=== PATIENT | male | born 2000 | race American Indian/Alaskan Native ===

== ENCOUNTER 2021-08-26 21:15 | Emergency (ER) | payer SELFPAY ==
--- NOTE | 2021-08-26 21:36 | EDM.PDOC ---
ED HPI GENERAL MEDICAL PROBLEM - General Chief Complaint: Respiratory Problem Stated Complaint: ASTHMA/NEEDS INHALER REFILL Time Seen by Provider: 08/26/21 21:25 Source of Information: Reports: Patient History Limitations: Reports: No Limitations - History of Present Illness INITIAL COMMENTS - FREE TEXT/NARRATIVE: 1-year-old male presents the emergency department with request for refill on his ProAir inhaler. Patient states he recently moved to [facility] and has not establish care with a primary care provider as of yet. States he does have a history of asthma. Denies any physical complaints at this time. - Related Data Allergies Allergy/AdvReac Type Severity Reaction Status Date / Time egg Allergy Severe Anaphylactic Uncoded 08/26/21 21:32 Shock Home Meds: Home Meds Albuterol Sulfate [Proair Hfa] 8.5 gm IH Q2H PRN #1 [email or web address] 08/26/21 [Rx] Albuterol Sulfate [Proair Respiclick] 08/26/21 [History] ED ROS GENERAL - Review of Systems Review Of Systems: Comprehensive ROS is negative, except as noted in HPI. ED EXAM, GENERAL - Physical Exam Exam: See Below Exam Limited By: No Limitations General Appearance: Alert, WD/WN, No Apparent Distress Ears: Normal External Exam, Hearing Grossly Normal Nose: Normal Inspection Throat/Mouth: Normal Inspection, Normal Lips, Normal Voice, No Airway Compromise Head: Atraumatic, Normocephalic Neck: Normal Inspection, Supple Respiratory/Chest: No Respiratory Distress, No Accessory Muscle Use Cardiovascular: Normal Peripheral Pulses, Regular Rate, Rhythm GI/Abdominal: No Distention (Male) Exam: Deferred Rectal (Males) Exam: Deferred Back Exam: Normal Inspection Extremities: Normal Inspection Neurological: Alert, Oriented, Normal Cognition Psychiatric: Normal Affect, Normal Mood Skin Exam: Warm, Dry, Intact, Normal Color, No Rash Lymphatic: No Adenopathy Course - Vital Signs Text/Narrative:: Stated above, patient presents requesting refill of his ProAir inhaler as he states he sometimes needs it in the middle the night if he is short of breath. Currently does not have any complaints of shortness of breath. States he will establish care with a primary care provider as soon as he can. Prescription [place] sent [place] in [place]. Last Recorded V/S: Last Vital Signs Temp 96.2 F L 08/26/21 21:28 Pulse 79 08/26/21 21:28 Resp 16 08/26/21 21:28 BP 117/64 08/26/21 21:28 Pulse Ox 98 08/26/21 21:28 Departure - Departure Time of Disposition: 21:34 Disposition: Home, Self-Care 01 Condition: Good Clinical Impression: Encounter for medication refill - Discharge Information Prescriptions: Albuterol Sulfate [Proair Hfa] 8.5 gm IH Q2H PRN #1 [email or web address] PRN Reason: Shortness Of Breath Referrals: PCP,None [Primary Care Provider] - Forms: ED Department Discharge Additional Instructions: you were seen in the ED for a refill of your proair. Recommend that you establish care with a primary care provider as soon as possible. Sepsis Event Note (ED) - Evaluation Sepsis Screening Result: No Definite Risk - Focused Exam Vital Signs: Vital Signs Temp Pulse Resp BP Pulse Ox 08/26/21 21:28 96.2 F L 79 16 117/64 98
== END 2021-08-26 21:39 | disposition home or self-care (01) ==
LOC: JD.ED 21:15
DX: J45.909 Unspecified asthma, uncomplicated (principal); Z76.0 Encounter for issue of repeat prescription; Z91.012 Allergy to eggs
CPT/HCPCS: 99281

== ENCOUNTER 2021-09-19 11:45 | Emergency (ER) | payer SELFPAY ==
--- NOTE | 2021-09-19 12:12 | EDM.PDOC ---
ED HPI GENERAL MEDICAL PROBLEM - General Chief Complaint: General Stated Complaint: ASTHMA Time Seen by Provider: 09/19/21 12:09 Source of Information: Reports: Patient History Limitations: Reports: No Limitations - History of Present Illness INITIAL COMMENTS - FREE TEXT/NARRATIVE: 20-year-old male presents to the ED with a known history of asthma. He has ran out of his ProAir inhaler and is experiencing an exacerbation of asthma symptoms. States he is up quite a bit at night to use his inhaler over the last few days. He states he believes the cold air made his symptoms worse. He did have a recent sore throat but it went away on its own. No fever no chills denies any productive cough. He has recently relocated to the [place] area and does not have a primary care provider. Onset: Gradual Onset Date: 09/16/21 (Has been having increased asthma symptoms for the last 4 to 5 days) Duration: Day(s):, Getting Worse Location: Reports: Other (Redness of breath and wheezing worse at bedtime) Quality: Reports: Other Severity: Moderate (Asthma symptoms wheezing and shortness of breath) Improves with: Reports: Rest Worsens with: Reports: Other (Worse with activity and working outside) Context: Reports: Other (Chronic asthma ran out of his inhaler). Denies: Activity (Nonproductive), Exercise, Lifting, Sick Contact, Trauma Associated Symptoms: Reports: Cough, Shortness of Breath, Other. Denies: Confusion, Chest Pain (Intermittent wheezing), cough w sputum, Diaphoresis, Fever/Chills, Headaches, Loss of Appetite, Malaise, Nausea/Vomiting, Rash, Seizure Treatments DISTANCE LEARNING PROGRAM COORDINATOR: Reports: Other (see below) (Ran out of his ProAir inhaler) - Related Data Allergies Allergy/AdvReac Type Severity Reaction Status Date / Time egg Allergy Severe Anaphylactic Uncoded 09/19/21 12:02 Shock Home Meds: Home Meds Albuterol Sulfate [Proair Hfa] 8.5 gm IH Q2H PRN #1 [email or web address] 08/26/21 [Rx] Albuterol Sulfate [Proair Hfa] 8.5 gm IH Q3HR PRN #1 [email or web address] 09/19/21 [Rx] Montelukast [Singulair] 10 mg PO DAILY 09/19/21 [History] Past Medical History HEENT History: Reports: Other (See Below) Other HEENT History: Seasonal Allergies Respiratory History: Reports: Asthma Social & Family History - Tobacco Use Tobacco Use Status *Q: Never Tobacco User - Caffeine Use Caffeine Use: Reports: Coffee - Recreational Drug Use Recreational Drug Use: No - Living Situation & Occupation Living situation: Reports: Single Occupation: Unemployed ED ROS GENERAL - Review of Systems Review Of Systems: See Below Constitutional: Denies: Fever, Chills, Malaise, Weakness, Fatigue, Night Sweats, Decreased Appetite HEENT: Reports: No Symptoms Respiratory: Reports: Shortness of Breath, Wheezing (Chronic asthma symptoms) Cardiovascular: Reports: No Symptoms Endocrine: Reports: No Symptoms GI/Abdominal: Reports: No Symptoms : Reports: No Symptoms Musculoskeletal: Reports: No Symptoms Skin: Reports: No Symptoms Neurological: Reports: No Symptoms Psychiatric: Reports: No Symptoms Hematologic/Lymphatic: Reports: No Symptoms Immunologic: Reports: No Symptoms ED EXAM, GENERAL - Physical Exam Exam: See Below Exam Limited By: No Limitations General Appearance: Alert, WD/WN, No Apparent Distress, Other (Temperature is 36.6 degrees. Heart rate is 67 and sinus respiratory 16 with O2 sats of 94% room air. Of note his hands are cold and therefore pulse oximetry is not accurate. BP is 126/80) Eye Exam: Bilateral Eye: Normal Inspection (No blepharal pallor or scleral icterus.) Ears: Normal TMs Throat/Mouth: Normal Inspection, Normal Lips, Normal Teeth, Normal Gums, Normal Oropharynx Head: Atraumatic, Normocephalic Neck: Normal Inspection, Supple, Non-Tender, Full Range of Motion. No: Lymphadenopathy (L), Lymphadenopathy (R) Respiratory/Chest: No Respiratory Distress, Normal Breath Sounds, No Accessory Muscle Use, Wheezing (Very occasional wheezing on forced expiration) Cardiovascular: Normal Peripheral Pulses, Regular Rate, Rhythm, No Edema, No Gallop, No JVD, No Murmur Peripheral Pulses: 3+: Carotid (L), Carotid (R), Posterior Tibial (L), Posterior Tibial (R), Dorsalis Pedis (L), Dorsalis Pedis (R) Course - Vital Signs Last Recorded V/S: Last Vital Signs Temp 36.6 C 09/19/21 12:00 Pulse 67 09/19/21 12:00 Resp 16 09/19/21 12:00 BP 126/80 09/19/21 12:00 Pulse Ox 94 L 09/19/21 12:00 - Radiology Interpretation Free Text/Narrative:: 20-year-old male presents to the ED with worsening asthma symptoms over the last 4 to 5 days. Believes it was set off by colder air environment. He recently relocated to the [facility]. Uses a proair inhaler but ran out of his inhaler and has yet to look up a primary care provider. He states symptoms are worse at bedtime. He did have a recent upper respiratory tract infection which appears to been viral with a sore throat that went away after 3 days. Examination reveals occasional expiratory wheeze from lung bases but otherwise clear. He is afebrile. Plan refill proair inhaler 8.5 g 2 puffs every 3 hours as needed for relief of cough. Departure - Departure Time of Disposition: 12:09 Disposition: Home, Self-Care 01 Condition: Fair Clinical Impression: Asthma exacerbation Qualifiers: Asthma severity: moderate Asthma persistence: unspecified Qualified Code(s): J45.901 - Unspecified asthma with (acute) exacerbation - Discharge Information *PRESCRIPTION DRUG MONITORING PROGRAM REVIEWED*: Not Applicable *COPY OF PRESCRIPTION DRUG MONITORING REPORT IN PATIENT MIKE: Not Applicable Prescriptions: Albuterol Sulfate [Proair Hfa] 8.5 gm IH Q3HR PRN #1 [email or web address] PRN Reason: Asthma symptoms Instructions: Asthma, Adult, [id number], Asthma Attack Referrals: PCP,None [Primary Care Provider] - Forms: ED Department Discharge Additional Instructions: Evaluation the emergency room today in regards to increased wheezing and shortness of breath due to exacerbation of asthma likely precipitated by cold air. Recent sore throat which appears to be been viral as it is now improved. Refill prescription for proair inhaler 2 puffs every 3-4 hours as needed for relief of shortness of breath and/or wheezing. If you are waking up at night to use your inhaler more than once your asthma is in poor control and you should be followed up in clinic for possible steroid inhaler to bring asthma under good control. Sepsis Event Note (ED) - Evaluation Sepsis Screening Result: No Definite Risk - Focused Exam Vital Signs: Vital Signs Temp Pulse Resp BP Pulse Ox 09/19/21 12:00 36.6 C 67 16 126/80 94 L
== END 2021-09-19 12:20 | disposition home or self-care (01) ==
LOC: JD.ED 11:45
DX: J45.901 Unspecified asthma with (acute) exacerbation (principal); Z91.012 Allergy to eggs; Z79.899 Other long term (current) drug therapy
CPT/HCPCS: 99283; 99284

== ENCOUNTER 2021-09-29 13:48 | Emergency (ER) | payer SELFPAY ==
[2021-09-29] MEDS ORDERED: Sodium Chloride 0.9% 10 ML Syringe FLUSH PRN (14:23)
[2021-09-29] MEDS ORDERED: Sodium Chloride 0.9% 1,000 ML IV ONE (14:23)
[2021-09-29] MEDS ORDERED: Ondansetron 4 MG/2 ML SDV IVPUSH ONE (14:23)
--- NOTE | 2021-09-29 14:53 | EDM.PDOC ---
ED HPI GENERAL MEDICAL PROBLEM - General Chief Complaint: General Stated Complaint: NAUSEA COUGH HEADACHE Time Seen by Provider: 09/29/21 14:18 Source of Information: Reports: Patient History Limitations: Reports: No Limitations - History of Present Illness INITIAL COMMENTS - FREE TEXT/NARRATIVE: 20-year-old male presents the emergency department today with complaints of nausea, vomiting, sore throat, cough, fever, weakness and generalized body aches that started this morning when he woke. States he does have a history of asthma. He is not a smoker. He states he cannot receive the influenza vaccine and has not received his Covid vaccine. States he has vomited so much he has been able to keep any food or fluids down. Headache Pain Score (Numeric/FACES): 8 - Related Data Allergies Allergy/AdvReac Type Severity Reaction Status Date / Time egg Allergy Severe Anaphylactic Verified 09/29/21 14:18 Shock Home Meds: Home Meds Albuterol Sulfate [Proair Hfa] 8.5 gm IH Q2H PRN #1 [email or web address] 08/26/21 [Rx] Past Medical History HEENT History: Reports: Other (See Below) Other HEENT History: Seasonal Allergies Respiratory History: Reports: Asthma Social & Family History - Caffeine Use Caffeine Use: Reports: Coffee - Living Situation & Occupation Living situation: Reports: Single Occupation: Unemployed ED ROS GENERAL - Review of Systems Review Of Systems: Comprehensive ROS is negative, except as noted in HPI. ED EXAM, GENERAL - Physical Exam Exam: See Below Exam Limited By: No Limitations General Appearance: Alert, WD/WN, Mild Distress Ears: Normal External Exam, Hearing Grossly Normal Nose: Normal Inspection Throat/Mouth: Normal Inspection, Normal Lips, Normal Voice, No Airway Compromise Head: Atraumatic, Normocephalic Neck: Normal Inspection, Supple Respiratory/Chest: No Respiratory Distress, Lungs Clear, Normal Breath Sounds, No Accessory Muscle Use, Chest Non-Tender Cardiovascular: Normal Peripheral Pulses, Regular Rate, Rhythm, No Edema, No Murmur Peripheral Pulses: 2+: Radial (L), Radial (R) GI/Abdominal: Normal Bowel Sounds, Soft, Non-Tender, No Distention (Male) Exam: Deferred Rectal (Males) Exam: Deferred Back Exam: Normal Inspection, Full Range of Motion Extremities: Normal Inspection, Normal Capillary Refill Neurological: Alert, Oriented, Normal Cognition Psychiatric: Normal Affect, Normal Mood Skin Exam: Warm, Dry, Intact, Normal Color, No Rash Lymphatic: No Adenopathy Course - Vital Signs Text/Narrative:: As stated above, patient presents with flulike symptoms that started this morning upon waking. He has been able unable to keep food or fluid down. Physical exam is essentially unremarkable, lungs are clear and heart rate is regular without murmur. Patient is sitting at the side of the bed holding an emesis bag at the time of my exam. Patient is hemodynamically stable at this time. Will obtain Covid and influenza swabs. Patient will also be given a liter of normal saline IV as he is likely dehydrated as well as Zofran 4 mg IV. Will medicate the patient with Tessalon Perles once his vomiting is under control. Last Recorded V/S: Last Vital Signs Temp 98.6 F 09/29/21 14:13 Pulse 96 09/29/21 14:13 Resp 20 09/29/21 14:13 BP 132/74 09/29/21 14:13 Pulse Ox 99 09/29/21 14:13 - Orders/Labs/Meds Orders: Active Orders 24 hr Category Date Time Status Vital Signs [RC] Q15M Care 09/29/21 15:43 Active EPINEPHrine [Adrenalin] Med 09/29/21 15:42 Active 0.3 mg IM ASDIRECTED PRN Famotidine [Pepcid] Med 09/29/21 15:42 Active 20 mg IVPUSH ASDIRECTED PRN Sodium Chloride 0.9% [Saline Flush] Med 09/29/21 14:23 Active 10 ml FLUSH ASDIRECTED PRN Sodium Chloride 0.9% [Saline Flush] Med 09/29/21 15:45 Active 30 ml FLUSH ASDIRECTED diphenhydrAMINE [Benadryl] Med 09/29/21 15:42 Active 50 mg IVPUSH ASDIRECTED PRN methylPREDNISolone Sod Succ [Solu-MEDROL] Med 09/29/21 15:42 Active 125 mg IVPUSH ASDIRECTED PRN Saline Lock Insert [OM.PC] Stat Oth 09/29/21 14:23 Ordered Medication Orders Diphenhydramine HCl (Diphenhydramine 50 Mg/Ml Sdv) 50 mg IVPUSH ASDIRECTED PRN PRN Reason: hypersensitivity reaction Epinephrine HCl (Epinephrine 1 Mg/Ml Sdv) 0.3 mg IM ASDIRECTED PRN PRN Reason: hypersensitivity reaction Famotidine (Famotidine 20 Mg/2 Ml Sdv) 20 mg IVPUSH ASDIRECTED PRN PRN Reason: hypersensitivity reaction Methylprednisolone Sodium Succinate (Methylprednisolone Sodium Succinate 125 Mg/2 Ml Sdv) 125 mg IVPUSH ASDIRECTED PRN PRN Reason: hypersensitivity reaction Sodium Chloride (Sodium Chloride 0.9% 10 Ml Syringe) 10 ml FLUSH ASDIRECTED PRN PRN Reason: Keep Vein Open Last Admin: 09/29/21 14:46 Dose: 10 ml Documented by: [email or web address] Sodium Chloride (Sodium Chloride 0.9% 10 Ml Syringe) 30 ml FLUSH ASDIRECTED BRIAN Labs: Laboratory Tests 09/29/21 09/29/21 09/29/21 Range/Units 14:31 14:31 14:31 WBC 9.98 H (4.23-9.07) K/mm3 RBC 5.44 (4.63-6.08) M/mm3 Hgb 15.9 (13.7-17.5) gm/dl Hct 46.6 (40.1-51.0) % MCV 85.7 (79.0-92.2) fl MCH 29.2 (25.7-32.2) pg MCHC 34.1 (32.2-35.5) g/dl RDW Std Deviation 41.7 (35.1-43.9) fL Plt Count 229 (163-337) K/mm3 MPV 10.3 (9.4-12.3) fl Neut % (Auto) 82.6 H (34.0-67.9) % Lymph % (Auto) 5.1 L (21.8-53.1) % [place] % (Auto) 5.0 L (5.3-12.2) % Eos % (Auto) 6.9 (0.8-7.0) Baso % (Auto) 0.2 (0.1-1.2) % Neut # (Auto) 8.24 H (1.78-5.38) K/mm3 Lymph # (Auto) 0.51 L (1.32-3.57) K/mm3 [place] # (Auto) 0.50 (0.30-0.82) K/mm3 Eos # (Auto) 0.69 H (0.04-0.54) K/mm3 Baso # (Auto) 0.02 (0.01-0.08) K/mm3 Sodium 137 (136-145) mEq/L Potassium 3.6 (3.5-5.1) mEq/L Chloride 102 (98-107) mEq/L Carbon Dioxide 22 (21-32) mEq/L Anion Gap 16.6 H (5-15) BUN 13 (7-18) mg/dL Creatinine 1.1 (0.7-1.3) mg/dL Est Cr Clr Drug Dosing 108.76 mL/min Estimated GFR (MDRD) > 60 (>60) mL/min BUN/Creatinine Ratio 11.8 L (14-18) Glucose 101 H (70-99) mg/dL Calcium 8.6 (8.5-10.1) mg/dL Magnesium 1.5 L (1.8-2.4) mg/dL Total Bilirubin 0.3 (0.2-1.0) mg/dL AST 30 (15-37) U/L ALT 50 (16-63) U/L Alkaline Phosphatase 107 (46-116) U/L C-Reactive Protein <0.2 (<1.0) mg/dL Total Protein 7.8 (6.4-8.2) g/dl Albumin 4.2 (3.4-5.0) g/dl Globulin 3.6 gm/dL Albumin/Globulin Ratio 1.2 (1-2) Influenza Type A RNA Negative (NEGATIVE) Influenza Type B RNA Negative (NEGATIVE) SARS-CoV-2 RNA (CINDY) Positive H (NEGATIVE) Meds: Medications Generic Name Dose Route Start Last Admin Trade Name Freq PRN Reason Stop Dose Admin Diphenhydramine HCl 50 mg 09/29/21 15:42 Diphenhydramine 50 Mg/Ml Sdv IVPUSH ASDIRECTED PRN hypersensitivity reaction Epinephrine HCl 0.3 mg 09/29/21 15:42 Epinephrine 1 Mg/Ml Sdv IM ASDIRECTED PRN hypersensitivity reaction Famotidine 20 mg 09/29/21 15:42 Famotidine 20 Mg/2 Ml Sdv IVPUSH ASDIRECTED PRN hypersensitivity reaction Methylprednisolone Sodium Succinate 125 mg 09/29/21 15:42 Methylprednisolone Sodium Succinate 125 Mg/2 Ml Sdv IVPUSH ASDIRECTED PRN hypersensitivity reaction Sodium Chloride 10 ml 09/29/21 14:23 09/29/21 14:46 Sodium Chloride 0.9% 10 Ml Syringe FLUSH 10 ml ASDIRECTED PRN Administration Keep Vein Open Sodium Chloride 30 ml 09/29/21 15:45 Sodium Chloride 0.9% 10 Ml Syringe FLUSH ASDIRECTED BRIAN Discontinued Medications Generic Name Dose Route Start Last Admin Trade Name Cristy PRN Reason Stop Dose Admin Sodium Chloride 1,000 mls @ 999 mls/hr 09/29/21 14:23 09/29/21 14:45 Normal Saline IV 09/29/21 15:23 999 mls/hr ONETIME ONE Administration SOTROVIMAB 500 mg/ Sodium 108 mls @ 216 mls/hr 09/29/21 15:42 09/29/21 17:25 Chloride IV 09/29/21 16:11 216 mls/hr ONETIME ONE Administration Ketorolac Tromethamine 30 mg 09/29/21 18:01 09/29/21 18:20 Ketorolac 30 Mg/Ml Sdv IVPUSH 09/29/21 18:02 30 mg ONETIME ONE Administration Metoclopramide HCl 5 mg 09/29/21 17:30 09/29/21 17:58 Metoclopramide 10 Mg/2 Ml Sdv IVPUSH 09/29/21 17:31 5 mg ONETIME ONE Administration Ondansetron HCl 4 mg 09/29/21 14:23 09/29/21 14:45 Ondansetron 4 Mg/2 Ml Sdv IVPUSH 09/29/21 14:24 4 mg ONETIME ONE Administration - Re-Assessments/Exams Free Text/Narrative Re-Assessment/Exam: 09/29/21 15:47 Hematology reveals a WBC of 9.8, hemoglobin 15.9, hematocrit 46.6, platelet count 229 Chemistry reveals a sodium of 137, potassium 3.6, anion gap 16.6, BUN 13, creatinine 1.1, GFR greater than 60, glucose 101, magnesium 1.5, C-reactive protein less than 0.2 Serology reveals influenza a and B are negative however Covid test is positive Due to the fact the patient does have a significant history of asthma and his BMI is 31.2 he would be a candidate for antibody treatment. I spoke with the patient to provide information about Sotrovimab for himself. I offered her the fax sheet for patients and caregivers for Sotrovimab to read and review. I stated the therapy has been approved by an emergency use authorization process and has not fully been FDA reviewed or approved. I shared the potential risks from the therapy including risks/adverse reactions. I discussed there are other potential treatment options that are currently not FDA approved to treat COVID-19. Offered opportunity ask questions and all questions were answered. Patient voiced understanding and agreed to proceed with treatment for himself. 09/29/21 15:48 IV fluids have been discontinued on this patient. 09/29/21 19:07 Patient did receive antibiotic treatment and has been monitored for 1 hour after and tolerated it well. He will be discharged home. Departure - Departure Time of Disposition: 19:07 Disposition: Home, Self-Care 01 Condition: Good Clinical Impression: COVID-19 - Discharge Information Instructions: COVID-19: How to Protect Yourself and Others - CDC, COVID-19: Quarantine vs. Isolation - [facility] (09/15/2020), 10 Things You Can Do to Manage Your COVID-19 Symptoms at Home - [facility] (04/14/2021) Referrals: PCP,None [Primary Care Provider] - Forms: ED Department Discharge, ED Return to Work/School Form Additional Instructions: You were seen in the emergency department today with complaints of flulike symptoms. Covid and influenza testing was completed and your Covid test did come back as positive. You did elect to receive antibody treatment for Covid. As discussed this will lengthen the length of time and severity that you have symptoms of Covid however, you will need to isolate for 10 days time as you will still be contagious. Recommend that you go home and get plenty of rest and drink plenty of fluids. May take Tylenol 650 mg every 4 hours as needed for body aches or ibuprofen 600 mg every 6-8 hours as needed for body aches or fever. Should your condition worsen or change, do not hesitate returning to the emergency department. Sepsis Event Note (ED) - Evaluation Sepsis Screening Result: No Definite Risk - Focused Exam Vital Signs: Vital Signs Temp Pulse Resp BP Pulse Ox 09/29/21 14:13 98.6 F 96 20 132/74 99 - My Orders Last 24 Hours: My Active Orders 09/29/21 14:23 Sodium Chloride 0.9% [Saline Flush] 10 ml FLUSH ASDIRECTED PRN Saline Lock Insert [OM.PC] Stat 09/29/21 15:42 EPINEPHrine [Adrenalin] 0.3 mg IM ASDIRECTED PRN Famotidine [Pepcid] 20 mg IVPUSH ASDIRECTED PRN diphenhydrAMINE [Benadryl] 50 mg IVPUSH ASDIRECTED PRN methylPREDNISolone Sod Succ [Solu-MEDROL] 125 mg IVPUSH ASDIRECTED PRN 09/29/21 15:43 Vital Signs [RC] Q15M 09/29/21 15:45 Sodium Chloride 0.9% [Saline Flush] 30 ml FLUSH ASDIRECTED - Assessment/Plan Last 24 Hours: My Active Orders 09/29/21 14:23 Sodium Chloride 0.9% [Saline Flush] 10 ml FLUSH ASDIRECTED PRN Saline Lock Insert [OM.PC] Stat 09/29/21 15:42 EPINEPHrine [Adrenalin] 0.3 mg IM ASDIRECTED PRN Famotidine [Pepcid] 20 mg IVPUSH ASDIRECTED PRN diphenhydrAMINE [Benadryl] 50 mg IVPUSH ASDIRECTED PRN methylPREDNISolone Sod Succ [Solu-MEDROL] 125 mg IVPUSH ASDIRECTED PRN 09/29/21 15:43 Vital Signs [RC] Q15M 09/29/21 15:45 Sodium Chloride 0.9% [Saline Flush] 30 ml FLUSH ASDIRECTED
[2021-09-29 15:29] LABS: CORONAVIRUS COVID-19 NAA POSITIVE (NEGATIVE)
[2021-09-29] MEDS ORDERED: Famotidine 20 MG/2 ML SDV IVPUSH PRN (15:42)
[2021-09-29] MEDS ORDERED: diphenhydrAMINE 50 MG/ML SDV IVPUSH PRN (15:42)
[2021-09-29] MEDS ORDERED: methylPREDNISolone Sodium Succinate 125 MG/2 ML SDV IVPUSH PRN (15:42)
[2021-09-29] MEDS ORDERED: EPINEPHrine 1 MG/ML SDV IM PRN (15:42)
[2021-09-29] MEDS ORDERED: Sodium Chloride 0.9% 10 ML Syringe FLUSH SCH (15:45)
[2021-09-29] MEDS ORDERED: Metoclopramide 10 MG/2 ML SDV IVPUSH ONE (17:30)
[2021-09-29] MEDS ORDERED: Ketorolac 30 MG/ML SDV IVPUSH ONE (18:01)
== END 2021-09-29 19:16 | disposition home or self-care (01) ==
LOC: JD.ED 13:48
DX: U07.1 COVID-19 (principal); J45.909 Unspecified asthma, uncomplicated; Z91.012 Allergy to eggs
CPT/HCPCS: 0240U; 36415; 80053; 83735; 85025; 86140; 96374; 96375; 99284; J1885; J2405; J2765; J7030; M0247; Q0247

== ENCOUNTER 2021-12-09 10:55 | Emergency (ER) | payer SELFPAY | END 2021-12-09 11:37 | disposition home or self-care (01) | LOC: JD.ED 10:55 | DX: J45.909 Unspecified asthma, uncomplicated (principal); Z76.0 Encounter for issue of repeat prescription; Z91.012 Allergy to eggs | CPT/HCPCS: 99283; 99284 ==

== ENCOUNTER 2021-12-29 23:37 | Emergency (ER) | payer SELFPAY ==
[2021-12-29] MEDS ORDERED: Albuterol/Ipratropium 3.0-0.5 MG/3 ML Neb Soln NEB ONE (23:59)
[2021-12-30] MEDS ORDERED: Cetirizine 10 MG Tab PO ONE (00:01)
== END 2021-12-30 01:35 | disposition home or self-care (01) ==
LOC: JD.ED 23:37
DX: J30.9 Allergic rhinitis, unspecified (principal); E66.9 Obesity, unspecified; Z68.31 Body mass index [BMI] 31.0-31.9, adult; Z91.012 Allergy to eggs; Z87.891 Personal history of nicotine dependence
CPT/HCPCS: 94640; 99284; A9270; 99283; J7620-GY

== ENCOUNTER 2022-01-05 01:09 | Observation (INO) | payer SELFPAY ==
[2022-01-05] MEDS ORDERED: methylPREDNISolone Sodium Succinate 125 MG/2 ML SDV IVPUSH ONE (01:26)
[2022-01-05] MEDS ORDERED: Ipratropium 0.02% 0.5 MG/2.5 ML Neb Soln NEB ONE (01:28)
[2022-01-05] MEDS ORDERED: Magnesium Sulfate/Water 2 GM in Premix Bag 1 BAG IV STA (01:29)
[2022-01-05] MEDS ORDERED: Ipratropium 0.02% 0.5 MG/2.5 ML Neb Soln NEB PRN (04:31)
[2022-01-05] MEDS ORDERED: Acetaminophen 325 MG Tab PO PRN (10:38)
== END 2022-01-05 15:20 | disposition home or self-care (01) ==
LOC: JD.ED 01:09 → JD.MS 02:43
PROVIDERS: ADMIT Pediatrics; ATTEND Pediatrics
DX: J45.901 Unspecified asthma with (acute) exacerbation (principal); J30.89 Other allergic rhinitis; R00.0 Tachycardia, unspecified; E66.9 Obesity, unspecified; Z68.31 Body mass index [BMI] 31.0-31.9, adult; Z91.012 Allergy to eggs; Z87.891 Personal history of nicotine dependence; Z20.822 Contact with and (suspected) exposure to COVID-19
CPT/HCPCS: 36415; 36600; 71045; 80053; 82803; 83605; 85007; 85027; 85379; 87635; 94640; A9270; J2930; J3475; 96365; 96375; 99285; 99285-25; G0378; U0002

== ENCOUNTER 2022-02-09 13:14 | Emergency (ER) | payer SELFPAY ==
[2022-02-09] MEDS ORDERED: Albuterol 6.7 GM Inhaler INH ONE (13:35)
== END 2022-02-09 13:50 | disposition home or self-care (01) ==
LOC: JD.ED 13:14
DX: J45.909 Unspecified asthma, uncomplicated (principal); E66.9 Obesity, unspecified; Z68.32 Body mass index [BMI] 32.0-32.9, adult; Z76.0 Encounter for issue of repeat prescription; Z86.16 Personal history of COVID-19; Z79.899 Other long term (current) drug therapy; Z91.012 Allergy to eggs; Z91.010 Allergy to peanuts; Z91.018 Allergy to other foods
CPT/HCPCS: 94640; 99282; A9270; 99283

== ENCOUNTER 2022-03-06 22:34 | Emergency (ER) | payer OTHER ==
[2022-03-06] MEDS ORDERED: Albuterol/Ipratropium 3.0-0.5 MG/3 ML Neb Soln NEB ONE (23:35)
[2022-03-07] MEDS ORDERED: predniSONE 20 MG Tab PO ONE (00:10)
[2022-03-07] MEDS ORDERED: Albuterol 6.7 GM Inhaler INH ONE (00:10)
== END 2022-03-07 00:30 | disposition home or self-care (01) ==
LOC: JD.ED 22:34
DX: J45.909 Unspecified asthma, uncomplicated (principal); E66.9 Obesity, unspecified; Z68.32 Body mass index [BMI] 32.0-32.9, adult; Z91.012 Allergy to eggs; Z91.010 Allergy to peanuts; Z91.018 Allergy to other foods; Z86.16 Personal history of COVID-19
CPT/HCPCS: 94640; 99284; A9270; J7512; 99282; J7620-GY

== ENCOUNTER 2022-04-03 07:53 | Emergency (ER) | payer OTHER ==
[2022-04-03] MEDS ORDERED: Albuterol/Ipratropium 3.0-0.5 MG/3 ML Neb Soln NEB ONE (08:32)
[2022-04-03 10:23] LABS: CORONAVIRUS COVID-19 NAA POSITIVE (NEGATIVE)
[2022-04-03] MEDS ORDERED: Albuterol 6.7 GM Inhaler INH ONE (10:57)
== END 2022-04-03 11:29 | disposition home or self-care (01) ==
LOC: JD.ED 07:53
DX: U07.1 COVID-19 (principal); E66.9 Obesity, unspecified; Z68.31 Body mass index [BMI] 31.0-31.9, adult; Z86.16 Personal history of COVID-19; Z79.899 Other long term (current) drug therapy; Z91.012 Allergy to eggs; Z91.010 Allergy to peanuts; Z91.018 Allergy to other foods
CPT/HCPCS: 0241U; 71046; 94640; 99285; A9270; J7620-GY

== ENCOUNTER 2022-04-24 20:36 | Emergency (ER) | payer MEDICAID, OTHER ==
[2022-04-24] MEDS ORDERED: Albuterol 6.7 GM Inhaler INH ONE (21:14)
== END 2022-04-24 21:40 | disposition home or self-care (01) ==
LOC: JD.ED 20:36
DX: J45.909 Unspecified asthma, uncomplicated (principal); E66.9 Obesity, unspecified; Z76.0 Encounter for issue of repeat prescription; Z68.30 Body mass index [BMI] 30.0-30.9, adult
CPT/HCPCS: 99282; A9270

== ENCOUNTER 2022-05-06 07:21 | Emergency (ER) | payer OTHER ==
[2022-05-06] MEDS ORDERED: Albuterol 6.7 GM Inhaler INH ONE (07:43)
== END 2022-05-06 08:00 | disposition home or self-care (01) ==
LOC: JD.ED 07:21
DX: J45.41 Moderate persistent asthma with (acute) exacerbation (principal); E66.9 Obesity, unspecified; Z68.32 Body mass index [BMI] 32.0-32.9, adult; Z86.16 Personal history of COVID-19; Z91.010 Allergy to peanuts; Z91.012 Allergy to eggs; Z91.018 Allergy to other foods
CPT/HCPCS: 99284; A9270; 99283

== ENCOUNTER 2022-06-01 19:35 | Emergency (ER) | payer SELFPAY | END 2022-06-01 21:17 | disposition home or self-care (01) | LOC: JD.ED 19:35 | DX: J45.909 Unspecified asthma, uncomplicated (principal); E66.9 Obesity, unspecified; Z91.012 Allergy to eggs; Z91.010 Allergy to peanuts; Z91.048 Other nonmedicinal substance allergy status | CPT/HCPCS: 99283 ==

== ENCOUNTER 2022-06-04 07:31 | Emergency (ER) | payer OTHER ==
[2022-06-04] MEDS ORDERED: methylPREDNISolone Sodium Succinate 125 MG/2 ML SDV IVPUSH ONE (08:05)
[2022-06-04] MEDS ORDERED: Dextrose 5%-Lactated Ringers 1,000 ML IV SCH (08:15)
[2022-06-04] MEDS: Albuterol/Ipratropium 3.0-0.5 MG/3 ML Neb Soln NEB PRN ×2 (08:34→09:08)
[2022-06-04] MEDS ORDERED: Albuterol/Ipratropium 3.0-0.5 MG/3 ML Neb Soln NEB PRN (08:55)
== END 2022-06-04 10:32 | disposition home or self-care (01) ==
LOC: JD.ED 07:31
DX: J45.901 Unspecified asthma with (acute) exacerbation (principal); E66.9 Obesity, unspecified; Z68.31 Body mass index [BMI] 31.0-31.9, adult; Z91.012 Allergy to eggs; Z91.010 Allergy to peanuts; Z91.018 Allergy to other foods; Z86.16 Personal history of COVID-19
CPT/HCPCS: 36415; 71045; 80053; 85025; 86140; 94640; 96365; 96375; 99285; J2930; J3475; J7121; 99284; J7620-GY

== ENCOUNTER 2022-06-10 19:57 | Emergency (ER) | payer OTHER ==
[2022-06-10] MEDS ORDERED: predniSONE 20 MG Tab PO ONE (20:40)
[2022-06-10] MEDS ORDERED: Albuterol/Ipratropium 3.0-0.5 MG/3 ML Neb Soln NEB ONE (20:40)
[2022-06-10] MEDS ORDERED: Albuterol 0.083% 2.5 MG/3 ML Neb Soln NEB ONE ×2 (22:07→22:28)
[2022-06-10] MEDS ORDERED: Albuterol 6.7 GM Inhaler INH ONE (22:16)
== END 2022-06-10 22:34 | disposition home or self-care (01) ==
LOC: JD.ED 19:57
DX: J45.901 Unspecified asthma with (acute) exacerbation (principal); E66.9 Obesity, unspecified; Z91.010 Allergy to peanuts; Z91.012 Allergy to eggs; Z91.018 Allergy to other foods; Z68.31 Body mass index [BMI] 31.0-31.9, adult
CPT/HCPCS: 94640; 99284; A9270; J7512; 99283; J7620-GY

== ENCOUNTER 2022-06-25 22:11 | Emergency (ER) | payer SELFPAY ==
[2022-06-25] MEDS ORDERED: predniSONE 20 MG Tab PO ONE (22:37)
[2022-06-25] MEDS ORDERED: Albuterol/Ipratropium 3.0-0.5 MG/3 ML Neb Soln NEB ONE ×2 (22:37→23:28)
== END 2022-06-25 23:57 | disposition home or self-care (01) ==
LOC: JD.ED 22:11
DX: J45.901 Unspecified asthma with (acute) exacerbation (principal); Z91.018 Allergy to other foods; E66.9 Obesity, unspecified; Z68.31 Body mass index [BMI] 31.0-31.9, adult
CPT/HCPCS: 94640; 99284; J7512; J7620-GY

== ENCOUNTER 2022-07-06 00:26 | Emergency (ER) | payer SELFPAY | END 2022-07-06 02:00 | disposition left against medical advice (07) | LOC: JD.ED 00:26 | DX: Z53.21 Procedure and treatment not carried out due to patient leaving prior to being seen by health care provider (principal) ==

== ENCOUNTER 2022-07-11 18:51 | Emergency (ER) | payer SELFPAY ==
[2022-07-11] MEDS ORDERED: Albuterol 6.7 GM Inhaler INH ONE (19:48)
[2022-07-11] MEDS ORDERED: Albuterol/Ipratropium 3.0-0.5 MG/3 ML Neb Soln NEB ONE (19:48)
[2022-07-11] MEDS ORDERED: predniSONE 10 MG Tab PO ONE (19:50)
== END 2022-07-11 21:47 | disposition home or self-care (01) ==
LOC: JD.ED 18:51
DX: J45.901 Unspecified asthma with (acute) exacerbation (principal); E66.9 Obesity, unspecified; Z68.31 Body mass index [BMI] 31.0-31.9, adult; Z91.012 Allergy to eggs; Z91.010 Allergy to peanuts; Z91.018 Allergy to other foods; Z86.16 Personal history of COVID-19
CPT/HCPCS: 71045; 94640; 99285; A9270; J7512; J7620-GY

== ENCOUNTER 2022-08-28 22:50 | Emergency (ER) | payer SELFPAY ==
[2022-08-28] MEDS ORDERED: Albuterol/Ipratropium 3.0-0.5 MG/3 ML Neb Soln NEB ONE (23:27)
== END 2022-08-29 00:10 | disposition home or self-care (01) ==
LOC: JD.ED 22:50
DX: J45.41 Moderate persistent asthma with (acute) exacerbation (principal); E66.9 Obesity, unspecified; Z68.33 Body mass index [BMI] 33.0-33.9, adult; Z86.16 Personal history of COVID-19; Z91.012 Allergy to eggs; Z91.010 Allergy to peanuts; Z91.018 Allergy to other foods
CPT/HCPCS: 94640; 99284; J7620-GY

== ENCOUNTER 2022-10-25 19:55 | Emergency (ER) | payer SELFPAY ==
[2022-10-25 20:59] LABS: CORONAVIRUS COVID-19 NAA NEGATIVE (NEGATIVE)
[2022-10-25] MEDS ORDERED: Albuterol 6.7 GM Inhaler INH ONE (21:17)
[2022-10-25] MEDS ORDERED: predniSONE 20 MG Tab PO ONE (21:18)
== END 2022-10-25 21:33 | disposition home or self-care (01) ==
LOC: JD.ED 19:55
DX: J45.909 Unspecified asthma, uncomplicated (principal); B34.9 Viral infection, unspecified; E66.9 Obesity, unspecified; Z68.32 Body mass index [BMI] 32.0-32.9, adult; Z20.822 Contact with and (suspected) exposure to COVID-19; Z91.010 Allergy to peanuts; Z91.012 Allergy to eggs; Z91.018 Allergy to other foods; Z79.899 Other long term (current) drug therapy
CPT/HCPCS: 0241U; 71045; 99285; A9270; J7512; 99283

== ENCOUNTER 2022-11-07 06:04 | Emergency (ER) | payer SELFPAY ==
[2022-11-07] MEDS ORDERED: Albuterol/Ipratropium 3.0-0.5 MG/3 ML Neb Soln NEB ONE (06:14)
[2022-11-07] MEDS ORDERED: Albuterol 0.083% 2.5 MG/3 ML Neb Soln NEB ONE (07:03)
[2022-11-07 07:30] LABS: CORONAVIRUS COVID-19 NAA NEGATIVE (NEGATIVE)
[2022-11-07] MEDS ORDERED: Albuterol 6.7 GM Inhaler INH ONE (07:52)
== END 2022-11-07 09:00 | disposition home or self-care (01) ==
LOC: JD.ED 06:04
DX: J45.41 Moderate persistent asthma with (acute) exacerbation (principal); E66.9 Obesity, unspecified; Z91.012 Allergy to eggs; Z91.010 Allergy to peanuts; Z91.018 Allergy to other foods; Z87.891 Personal history of nicotine dependence; Z20.822 Contact with and (suspected) exposure to COVID-19
CPT/HCPCS: 0241U; 94640; 99285; A9270; 99283; J7620-GY

== ENCOUNTER 2022-11-20 23:38 | Emergency (ER) | payer SELFPAY ==
[2022-11-21] MEDS ORDERED: Albuterol/Ipratropium 3.0-0.5 MG/3 ML Neb Soln NEB ONE (00:18)
[2022-11-21] MEDS ORDERED: predniSONE 20 MG Tab PO ONE (00:18)
[2022-11-21] MEDS ORDERED: Albuterol 6.7 GM Inhaler INH ONE (00:47)
== END 2022-11-21 01:08 | disposition home or self-care (01) ==
LOC: JD.ED 23:38
DX: J45.901 Unspecified asthma with (acute) exacerbation (principal); E66.9 Obesity, unspecified; Z68.33 Body mass index [BMI] 33.0-33.9, adult; Z79.899 Other long term (current) drug therapy; Z91.010 Allergy to peanuts; Z91.012 Allergy to eggs; Z91.018 Allergy to other foods
CPT/HCPCS: 94640; 99284; A9270; J7512; 99283; J7620-GY

== ENCOUNTER 2022-11-29 15:07 | Emergency (ER) | payer SELFPAY ==
[2022-11-29] MEDS ORDERED: Albuterol/Ipratropium 3.0-0.5 MG/3 ML Neb Soln NEB ONE (15:25)
[2022-11-29] MEDS ORDERED: Albuterol 6.7 GM Inhaler INH ONE (15:44)
== END 2022-11-29 16:10 | disposition home or self-care (01) ==
LOC: JD.ED 15:07
DX: J45.909 Unspecified asthma, uncomplicated (principal); E66.9 Obesity, unspecified; Z68.31 Body mass index [BMI] 31.0-31.9, adult; Z91.012 Allergy to eggs; Z91.010 Allergy to peanuts; Z91.018 Allergy to other foods; Z86.16 Personal history of COVID-19
CPT/HCPCS: 94640; 99284; A9270; 99283; J7620-GY

== ENCOUNTER 2022-12-30 14:29 | Emergency (ER) | payer SELFPAY ==
[2022-12-30] MEDS ORDERED: Albuterol/Ipratropium 3.0-0.5 MG/3 ML Neb Soln ONE (14:53)
[2022-12-30] MEDS ORDERED: Albuterol/Ipratropium 3.0-0.5 MG/3 ML Neb Soln NEB ONE (14:57)
[2022-12-30] MEDS ORDERED: Albuterol 6.7 GM Inhaler INH ONE (15:18)
== END 2022-12-30 15:45 | disposition home or self-care (01) ==
LOC: JD.ED 14:29
DX: J45.909 Unspecified asthma, uncomplicated (principal); E66.9 Obesity, unspecified; Z68.33 Body mass index [BMI] 33.0-33.9, adult; Z91.011 Allergy to milk products; Z91.010 Allergy to peanuts; Z91.018 Allergy to other foods; Z86.16 Personal history of COVID-19
CPT/HCPCS: 71045; 94640; 99285; A9270; 99283; J7620-GY

== ENCOUNTER 2023-01-17 10:10 | Emergency (ER) | payer SELFPAY ==
[2023-01-17] MEDS ORDERED: predniSONE 20 MG Tab PO ONE (10:26)
[2023-01-17] MEDS ORDERED: Albuterol/Ipratropium 3.0-0.5 MG/3 ML Neb Soln NEB ONE (10:26)
[2023-01-17] MEDS ORDERED: Mometasone Furoate HFA 100mcg/Puff 13 GM Inhaler INH ONE (11:46)
[2023-01-17] MEDS ORDERED: Albuterol 6.7 GM Inhaler INH ONE (11:46)
== END 2023-01-17 12:00 | disposition home or self-care (01) ==
LOC: JD.ED 10:10
DX: J45.41 Moderate persistent asthma with (acute) exacerbation (principal); E66.9 Obesity, unspecified; Z91.012 Allergy to eggs; Z91.010 Allergy to peanuts; Z91.018 Allergy to other foods; J45.909 Unspecified asthma, uncomplicated; Z79.51 Long term (current) use of inhaled steroids; Z86.16 Personal history of COVID-19; Z68.33 Body mass index [BMI] 33.0-33.9, adult
CPT/HCPCS: 94640; 99284; A9270; J7512; 99283; J7620-GY

== ENCOUNTER 2023-02-03 13:16 | Emergency (ER) | payer SELFPAY ==
[2023-02-03] MEDS ORDERED: Albuterol/Ipratropium 3.0-0.5 MG/3 ML Neb Soln NEB ONE (13:20)
[2023-02-03] MEDS ORDERED: Mometasone Furoate Powder 220 MCG/Puff 14 Dose Inhaler INH ONE (13:37)
[2023-02-03] MEDS ORDERED: methylPREDNISolone Sodium Succinate 125 MG/2 ML SDV IM ONE (13:37)
[2023-02-03] MEDS ORDERED: Albuterol 6.7 GM Inhaler INH ONE (13:38)
[2023-02-03] MEDS ORDERED: Mometasone Furoate HFA 200 mcg/Puff 13 GM Inhaler ONE (13:42)
[2023-02-03] MEDS ORDERED: Mometasone Furoate HFA 200 mcg/Puff 13 GM Inhaler INH ONE (13:46)
[2023-02-03] MEDS: Mometasone Furoate HFA 200 mcg/Puff 13 GM Inhaler INH ONE ×2 (13:47→14:08)
== END 2023-02-03 14:45 | disposition home or self-care (01) ==
LOC: JD.ED 13:16
DX: J45.21 Mild intermittent asthma with (acute) exacerbation (principal); E66.9 Obesity, unspecified; Z68.33 Body mass index [BMI] 33.0-33.9, adult; Z91.012 Allergy to eggs; Z91.010 Allergy to peanuts; Z91.018 Allergy to other foods
CPT/HCPCS: 94640; 96372; 99284; A9270; J2930; J7620-GY

== ENCOUNTER 2023-02-25 15:15 | Emergency (ER) | payer SELFPAY ==
[2023-02-25] MEDS ORDERED: Albuterol 0.5% 2.5 MG/0.5 ML Neb Soln ONE (15:20)
[2023-02-25] MEDS ORDERED: Albuterol/Ipratropium 3.0-0.5 MG/3 ML Neb Soln ONE (15:20)
[2023-02-25] MEDS ORDERED: methylPREDNISolone Sodium Succinate 125 MG/2 ML SDV IVPUSH ONE (15:20)
[2023-02-25] MEDS ORDERED: methylPREDNISolone Sodium Succinate 125 MG/2 ML SDV ONE (15:20)
[2023-02-25 16:12] LABS: BASOPHILS ABSOLUTE AUTO 0.06 K/mm3 (0.01-0.08); BASOPHILS PERCENT AUTO 0.4 % (0.1-1.2); EOSINOPHILS PERCENT AUTO 12.9 (0.8-7.0); HEMATOCRIT 49.7 % (40.1-51.0); HEMOGLOBIN 16.7 gm/dl (13.7-17.5); IMMATURE GRAN ABSOLUTE AUTO 0.05 K/mm3 (0.00-0.10); IMMATURE GRAN PERCENT AUTO 0.3 % (<=1.0); LYMPHOCYTES ABSOLUTE AUTO 4.86 K/mm3 (1.32-3.57); MEAN CORPUSCULAR HEMOGLOBIN 29.1 pg (25.7-32.2); MEAN CORPUSCULAR HGB CONC 33.6 g/dl (32.2-35.5); MEAN CORPUSCULAR VOLUME 86.7 fl (79.0-92.2); MEAN PLATELET VOLUME 10.2 fl (9.4-12.3); MONOCYTES ABSOLUTE AUTO 0.97 K/mm3 (0.30-0.82); MONOCYTES PERCENT AUTO 6.6 % (5.3-12.2); NEUTROPHILS PERCENT AUTO 46.8 % (34.0-67.9); PLATELET COUNT,PLT 352 K/mm3 (163-337); RED BLOOD CELL COUNT 5.73 M/mm3 (4.63-6.08); WHITE BLOOD CELL COUNT,WBC 14.74 K/mm3 (4.23-9.07)
[2023-02-25 16:23] LABS: A/G RATIO 1.1 (1-2); ALANINE AMINOTRANSFERASE,ALT 34 U/L (16-63); ALBUMIN 4.3 g/dl (3.4-5.0); ALKALINE PHOSPHATASE 116 U/L (46-116); ANION GAP 16.7 (5-15); ASPARTATE AMNIOTRANSFERASE,AST 30 U/L (15-37); BILIRUBIN TOTAL 0.5 mg/dL (0.2-1.0); BLOOD UREA NITROGEN,BUN 6 mg/dL (7-18); C-REACTIVE PROTEIN <0.2 mg/dL (<1.0); CALCIUM 8.9 mg/dL (8.5-10.1); CARBON DIOXIDE,CO2 24 mEq/L (21-32); CHLORIDE,CL 107 mEq/L (98-107); CREATININE 1.2 mg/dL (0.7-1.3); ESTIMATED GFR 87 mL/min (>60); GLUCOSE RANDOM 98 mg/dL (70-99); POTASSIUM,K 3.7 mEq/L (3.5-5.1); PROTEIN TOTAL,TP 8.2 g/dl (6.4-8.2); SODIUM,NA 144 mEq/L (136-145)
[2023-02-25] MEDS ORDERED: Albuterol 6.7 GM Inhaler INH ONE (17:17)
== END 2023-02-25 18:42 | disposition home or self-care (01) ==
LOC: JD.ED 15:15
DX: J45.901 Unspecified asthma with (acute) exacerbation (principal); E66.9 Obesity, unspecified; Z86.16 Personal history of COVID-19; Z91.010 Allergy to peanuts; Z91.012 Allergy to eggs; Z91.018 Allergy to other foods
CPT/HCPCS: 36415; 71045; 80053; 85025; 86140; 94640; 96374; 99285; A9270; J2930; 99284; J7620-GY

== ENCOUNTER 2023-04-18 17:52 | Emergency (ER) | payer SELFPAY ==
[2023-04-18 23:03] LABS: C. TRACHOMATIS BY PCR NOT DETECTED; N. GONORRHOEAE BY PCR NOT DETECTED
== END 2023-04-18 23:25 | disposition home or self-care (01) ==
LOC: JD.ED 17:52
DX: Z11.3 Encounter for screening for infections with a predominantly sexual mode of transmission (principal); Z91.010 Allergy to peanuts; Z91.018 Allergy to other foods; Z91.012 Allergy to eggs
CPT/HCPCS: 87491; 87591; 87801; 99282; 99283

== ENCOUNTER 2023-05-02 22:20 | Emergency (ER) | payer SELFPAY ==
[2023-05-02] MEDS ORDERED: methylPREDNISolone Sodium Succinate 125 MG/2 ML SDV IVPUSH ONE (22:40)
[2023-05-02] MEDS: Albuterol 0.083% 2.5 MG/3 ML Neb Soln NEB SCH ×3 (22:52→23:20)
[2023-05-02] MEDS ORDERED: Ondansetron 4 MG/2 ML SDV IVPUSH ONE (22:53)
[2023-05-03] MEDS ORDERED: Albuterol/Ipratropium 3.0-0.5 MG/3 ML Neb Soln NEB ONE (01:16)
[2023-05-03] MEDS ORDERED: Albuterol 0.083% 2.5 MG/3 ML Neb Soln NEB ONE (02:12)
== END 2023-05-03 03:13 | disposition home or self-care (01) ==
LOC: JD.ED 22:20
DX: J45.21 Mild intermittent asthma with (acute) exacerbation (principal); E66.9 Obesity, unspecified; Z68.31 Body mass index [BMI] 31.0-31.9, adult; Z91.012 Allergy to eggs; Z91.018 Allergy to other foods
CPT/HCPCS: 94640; 96374; 99284; J2405; J2930; J7620-GY

== ENCOUNTER 2023-05-12 01:39 | Emergency (ER) | payer SELFPAY ==
[2023-05-12] MEDS ORDERED: Albuterol/Ipratropium 3.0-0.5 MG/3 ML Neb Soln NEB ONE (02:03)
[2023-05-12] MEDS ORDERED: Albuterol 6.7 GM Inhaler INH ONE (02:04)
[2023-05-12] MEDS ORDERED: predniSONE 10 MG Tab PO ONE (02:05)
[2023-05-12] MEDS ORDERED: Albuterol 0.083% 2.5 MG/3 ML Neb Soln NEB ONE (03:01)
[2023-05-12] MEDS ORDERED: Albuterol 0.083% 2.5 MG/3 ML Neb Soln ONE (03:01)
== END 2023-05-12 04:45 | disposition home or self-care (01) ==
LOC: JD.ED 01:39
DX: J45.21 Mild intermittent asthma with (acute) exacerbation (principal); E66.9 Obesity, unspecified; Z68.32 Body mass index [BMI] 32.0-32.9, adult; Z86.16 Personal history of COVID-19; Z91.012 Allergy to eggs; Z91.010 Allergy to peanuts; Z91.018 Allergy to other foods
CPT/HCPCS: 71045; 94640; 99285; A9270; J7512; 99283; J7620-GY

== ENCOUNTER 2023-05-16 19:04 | Emergency (ER) | payer SELFPAY ==
[2023-05-16] MEDS ORDERED: Albuterol/Ipratropium 3.0-0.5 MG/3 ML Neb Soln NEB ONE (19:38)
[2023-05-16] MEDS ORDERED: methylPREDNISolone Sodium Succinate 125 MG/2 ML SDV IM ONE (19:39)
== END 2023-05-16 20:59 | disposition home or self-care (01) ==
LOC: JD.ED 19:04
DX: J98.01 Acute bronchospasm (principal); J45.909 Unspecified asthma, uncomplicated; E66.9 Obesity, unspecified; Z86.16 Personal history of COVID-19; Z79.899 Other long term (current) drug therapy; Z91.012 Allergy to eggs; Z91.010 Allergy to peanuts; Z91.018 Allergy to other foods
CPT/HCPCS: 71045; 94640; 96372; 99284; J2930; 99283; J7620-GY